=== PATIENT | female | born 1975 | race Caucasian/White ===

== ENCOUNTER 2016-12-05 06:07 | Observation (INO) | payer OTHER ==
[2016-12-04 12:12] VITALS: BMI 25.8
[2016-12-05] VITALS (20 sets, daily range): BP systolic 115–135; BP diastolic 59–74; PULSE 67–90; RESP 12–20; Ht 152.4 cm; Wt 59.5 kg
[~2016-12-05] VITALS: Ht 152.4 cm; Wt 59.5 kg
[2016-12-05] MEDS: LACTATED RINGER'S 1,000 ML IV* SCH ×4 (06:00→22:11)
[~2016-12-05 06:07] MED LIST: CEFAZOLIN 2 GM/50 ML (PMX) 50 ML IVPB ONE
[2016-12-05] MEDS ORDERED: ROCURONIUM 50 MG INJ ONE (07:00)
[2016-12-05] MEDS ORDERED: IBUP800T25 PO (07:01)
[2016-12-05] MEDS ORDERED: BETAMET NA PHOS/AC(6 MG/ML) 5ML INJ ONE (07:42)
[2016-12-05] MEDS ORDERED: THROMBIN 5000 UNIT VIAL ONE (07:42)
[2016-12-05] MEDS ORDERED: POLYMYXIN/BACITRACIN 1L IRRIG ONE (07:42)
[2016-12-05] MEDS ORDERED: GELATIN SIZE 100 SPONGE ONE (07:43)
--- NOTE | 2016-12-05 07:45 | HPN ---
Date/Time of Note Date/Time of Note DATE: 12/05/16 TIME: 07:44 Interval H&P Admission Note Pt. seen H&P reviewed: No system changes HAO TALAVERA MD Dec 05, 2016 07:44
[2016-12-05] MEDS ORDERED: SUCCINYLCHOLINE CHLORIDE 100 MG/5 ML SYG IV ONE (08:02)
[2016-12-05] MEDS ORDERED: PROPOFOL 20 ML ONE (08:02)
[2016-12-05] MEDS ORDERED: MIDAZOLAM 1 MG/ML 2 ML INJ ONE (08:02)
[2016-12-05] MEDS ORDERED: LIDOCAINE 2% (SDV) 5 ML INJ ONE (08:02)
[2016-12-05] MEDS ORDERED: BUPIVACAINE 0.5%/EPI (SDV) 10 ML INJ ONE (08:08)
[2016-12-05] MEDS ORDERED: PHENYLephrine (100 MCG/ML) 5ML SYG ONE (08:13)
[2016-12-05] MEDS ORDERED: CEFAZOLIN 1 GM INJ ONE (08:14)
[2016-12-05] MEDS ORDERED: ONDANSETRON 4 MG INJ ONE (08:25)
[2016-12-05] MEDS ORDERED: DEXAMETHASONE 4 MG/ML 1 ML INJ ONE (08:25)
[2016-12-05] MEDS ORDERED: FAMOTIDINE 20 MG INJ ONE (08:25)
[2016-12-05] MEDS ORDERED: SUGAMMADEX SODIUM 200 MG/2 ML VIAL IV ONE (10:45)
--- NOTE | 2016-12-05 10:55 | RADRPT ---
PROCEDURE: X-ray fluoroscopy guidance CLINICAL INDICATION: Pain TECHNIQUE: Fluoroscopic guidance was utilized for lumbar microdiskectomy L4-5. Fluoro time: 6.8 seconds Number of images/sequences: 4 COMPARISON: None available FINDINGS: Surgical instruments are seen directed at the L4-5 disk space. IMPRESSION: 1. X-ray fluoroscopic guidance, as above. RPTAT: QQ .Beltran Mcfarland MD, MD Date Time Electronically viewed and signed by .Beltran Mcfarland MD, on 12/05/2016 10:54 .R/
[2016-12-05] MEDS ORDERED: NALOXONE (0.4 MG/ML) INJ IV PRN (11:00)
[2016-12-05] MEDS ORDERED: PROCHLORPERAZINE 10 MG TAB PO PRN (11:00)
[2016-12-05] MEDS ORDERED: HYDROCODONE/APAP (5/325) TAB PO PRN (11:00)
[2016-12-05] MEDS ORDERED: NACL 0.9% 3 ML SYG IV SCH (11:00)
[2016-12-05] MEDS ORDERED: BETHANECHOL 25 MG TAB PO PRN (11:00)
--- NOTE | 2016-12-05 11:03 | OPR ---
Date/Time of Note Date/Time of Note DATE: 12/05/16 TIME: 10:52 Operative Report Free Text/Dictation DATE OF OPERATION: 12/05/2016 PREOPERATIVE DIAGNOSES: Left L4-L5 disk herniation and lateral recess stenosis with L5 radiculopathy POSTOPERATIVE DIAGNOSES: Left L4-L5 disk herniation and lateral recess stenosis with L5 radiculopathy OPERATION PERFORMED: 1. Left L4-L5 microdiscectomy with laminotomy and partial medial facetectomy SURGEON: Hao Talavera MD ANESTHESIA: General endotracheal ESTIMATED BLOOD LOSS: 50 mL SURGICAL INDICATION: The patient is a 41 year-old female who presents with a history of left lower extremity pain and weakness. She was found to have a disc herniation and lateral recess stenosis which correlated well with her symptoms. The patient had failed conservative treatment. Risks, benefits, and alternatives to microdiscectomy with left sided L4-5 microdecompression were explained to the patient and they wished to proceed. Risks explained included but were not exclusive of bleeding, infection, cauda equina syndrome, nerve injury, dural tear, iatrogenic instability requiring future fusion, recurrent disc herniation, fracture, vascular injury, bowel injury, stroke, heart attack and pulmonary embolism. DESCRIPTION OF TECHNIQUE: The patient was identified in the preoperative area and taken to the operating room. Rapid induction of general endotracheal anesthesia was performed. The patient was given 2 g of cefazolin for prophylaxis. The patient was then placed in the prone position on the Param table on top of a Shamar frame with all bony prominences well padded. The back was prepped and draped in the usual sterile manner. Using a spinal needle and intraoperative fluoroscopy, the appropriate level was clearly identified. The skin was injected using 0.5% Marcaine with epinephrine. Longitudinal midline incision was then created using a 10 blade. Further dissection through soft tissue was performed using electrocautery down to the spinous processes. The dissection was taken down the left side of the lamina and over the facet joint capsule. A self-retaining retractor was applied. Again , intraoperative fluoroscopy confirmed the appropriate level. The microscope was brought into use for microdissection. A small portion of the caudal aspect of the cephalad lamina and medial facet was resected using a high- speed bur. The L5 pedicle was identified caudally using a nerve probe. A series of Kerrison rongeurs were then used to resect the ligamentum flavum. The dura and traversing nerve root were both directly visualized. These were retracted gently in a medial direction. Immediately, the extruded disc fragment was noted. The pseudo anulus was incised using an 11 blade. Several loose fragments of disk were removed. These were removed back to a stable portion of the disk. The disk space was further pressurized using a using normal saline through a syringe to ensure that no loose fragments remained behind. Palpation with a ball -tip probe did not reveal any further stenosis. The traversing L5 nerve root was noted to be significantly decompressed. Meticulous attention was paid towards hemostasis using FloSeal . Care was taken to remove all FloSeal prior to wound closure. The fascia was then closed using 0 Vicryl in an interrupted fashion. Subcutaneous tissue was closed using 2-0 Vicryl in an interrupted fashion. The skin was closed using a running 4-0 Monocryl stitch. The wound was dressed using Dermabond, sterile gauze and a Tegaderm. The patient was returned to the supine position. She was extubated immediately postoperatively and taken to the recovery room in stable condition. COMPLICATIONS: None. Surgeon: HAO TALAVERA MD Anesthesia Type: general Estimated Blood Loss: 50 - 100 ml's Transfusion Required: yes Specimens L4-5 disk Grafts/Implants: none Complications: no Pt Condition Post Procedure: stable Disposition: PACU HAO TALAVERA MD Dec 05, 2016 11:02
--- NOTE | 2016-12-05 11:05 | PDOCDIS ---
Discharge Instructions CONDITION Patient Condition: Good HOME CARE INSTRUCTIONS: Diet Instructions: Regular ACTIVITY: Activity Restrictions: Avoid heavy lifting Bathing Restrictions: Shower FOLLOW UP/APPOINTMENTS Follow-up Plan Follow-up with Dr. Talavera in 2 weeks HAO TALAVERA MD Dec 05, 2016 11:05
[2016-12-05] MEDS ORDERED: HYDROmorphONE (0.2 MG/ML) 10ML SYG IV ONE (11:15)
[2016-12-05] MEDS ORDERED: MEPERIDINE 25 MG INJ ONE (11:15)
[2016-12-05] MEDS: CEFAZOLIN 1 GM/50 ML (PMX) 50 ML IVPB SCH ×2 (11:29→18:23)
[2016-12-05] MEDS: HYDROmorphONE (0.2 MG/ML) 10ML SYG IV PRN ×5 (11:41→12:16)
[2016-12-05] MEDS ORDERED: HYDROmorphONE (0.2 MG/ML) 10ML SYG IV PRN (12:00)
[2016-12-05] MEDS ORDERED: MEPERIDINE 25 MG INJ IV PRN (12:00)
[2016-12-05] MEDS ORDERED: DIPHENHYDRAMINE 50 MG INJ IV PRN (12:00)
[2016-12-05] MEDS ORDERED: FENTAnyl 50 MCG/ML VIAL IV PRN ×2 (12:00)
[2016-12-05] MEDS ORDERED: PROCHLORPERAZINE 10 MG INJ IV PRN (12:00)
[2016-12-05] MEDS ORDERED: LORAZEPAM 2 MG INJ IV PRN (12:00)
[2016-12-05] MEDS ORDERED: ONDANSETRON 4 MG INJ IV PRN (12:00)
[2016-12-05] MEDS: HYDROmorphONE 1 MG/ML SYG IV PRN ×2 (14:19→19:28)
[2016-12-05] MEDS: HYDROCODONE/APAP (5/325) TAB PO PRN (17:17)
[2016-12-05] MEDS: ONDANSETRON 4 MG INJ IV PRN (17:21)
[2016-12-06] MEDS: HYDROCODONE/APAP (5/325) TAB PO PRN ×4 (00:14→13:28)
[2016-12-06] MEDS: CEFAZOLIN 1 GM/50 ML (PMX) 50 ML IVPB SCH ×2 (00:15→06:30)
[2016-12-06 07:00] VITALS: BP 126/65; RESP 20
[2016-12-06] MEDS: ONDANSETRON 4 MG INJ IV PRN (10:20)
== END 2016-12-06 16:45 | disposition home or self-care (01) ==
LOC: SDS 06:07 → REC 10:48 → SDS 10:48 → MS1 10:48 → EDSTATUS 12:00 → MS1 12:45
PROVIDERS: ADMIT Orthopaedic Surgery; ATTEND Orthopaedic Surgery
DX: M51.16 Intervertebral disc disorders with radiculopathy, lumbar region (principal)
CPT/HCPCS: 63030; 72100; 88304; 97116; 97162; J0690; J0702; J1100; J1170; J1200; J2175; J2250; J2405; J3010; J7120; Z7500; Z7512; Z7610; G0378; J2370; J7999

== ENCOUNTER 2017-02-02 20:42 | Emergency (ER) | payer MEDICAID, OTHER ==
[~2017-02-02] VITALS: Ht 154.9 cm; Wt 60.5 kg
[2017-02-02 21:14] VITALS: Ht 154.9 cm; Wt 60.5 kg
[2017-02-03] MEDS ORDERED: HYDROCODONE/APAP (10/325) TAB PO ONE
[2017-02-03] MEDS ORDERED: IBUP-1542 PO ×2 (00:04→02:20)
--- NOTE | 2017-02-03 00:04 | ERD ---
ER Documentation Chief Complaint Date/Time DATE: 02/03/17 TIME: 00:02 Chief Complaint back pain since thursday had surgery nov 28 HPI 41-year-old female presents here to emergency department for complaints of lower back pain that started 3 days ago, patient had a history of back surgery done in November 28, approximately 2 months ago for her back. Patient started to have pain in the back again, throbbing pain, 6/10 scale, as was upon movement. Patient took ibuprofen at home with much relief. Patient denies any numbness or tingling. Patient denies any incontinence. Patient denies any fever or chills. ROS All systems reviewed and are negative except as per history of present illness. Medications Home Meds Reported Medications Ibuprofen* (Motrin*) Unknown Strength Tab, PO Q6, #30 TAB 02/03/17 Allergies Allergies: Coded Allergies: No Known Allergy (Unverified , 12/05/16) PMhx/Soc History of Surgery: Yes (C/ S X2, OVARIAN SX FOR ECTOPIC , TUMMY TUCK , BREAST ) Anesthesia Reaction: No Hx Neurological Disorder: No Hx Respiratory Disorders: No Hx Cardiac Disorders: No Hx Psychiatric Problems: No Hx Miscellaneous Medical Probl: Yes (back sx- r/o back pain a month ago) Hx Alcohol Use: No Hx Substance Use: No Hx Tobacco Use: No Smoking Status: Never smoker FmHx Family History: No coronary disease, No diabetes, No other Physical Exam Vitals Vital Signs Date Time Temp Pulse Resp B/P Pulse Ox O2 Delivery O2 Flow Rate FiO2 02/02/17 21:14 98.4 77 20 144/74 100 Physical Exam GENERAL: The patient is well developed and appropriate for usual state of health, in no apparent distress. CHEST: Clear to auscultation bilaterally. There are no rales, wheezes or rhonchi. HEART: Regular rate and rhythm. No murmurs, clicks, rubs or gallops. No S3 or S4. ABDOMEN: Soft, nontender and nondistended. Good bowel sounds. No rebound or guarding. No gross peritonitis. No gross organomegaly or masses. No Chambers sign or McBurney point tenderness. BACK: No midline or flank tenderness. EXTREMITIES: Equal pulses bilaterally. There is no peripheral clubbing, cyanosis or edema. No focal swelling or erythema. Full range of motion. Grossly neurovascularly intact. NEURO: Alert and oriented. Cranial nerves 2-12 intact. Motor strength in all 4 extremities with 5/5 strength. Sensation grossly intact. Normal speech and gait. SKIN: There is no apparent rash or petechia. The skin is warm and dry. HEMATOLOGIC AND LYMPHATIC: There is no evidence of excessive bruising or lymphedema. No gross cervical, axillary, or inguinal lymphadenopathy. Results 24 hrs Current Medications Medications (Trade) Dose Ordered Sig/Jeanette Route PRN Reason Start Time Stop Time Status Last Admin Dose Admin Acetaminophen/ Hydrocodone Bitart (Deerwood ()) 1 tab ONCE ONCE PO 02/03/17 00:00 02/03/17 00:01 DC 02/03/17 01:06 Patient was given medication for pain here in emergency department, after treatment, patient verbalized feeling much better. Patient's pain is improved. PROCEDURE: CT lumbar spine without contrast CLINICAL INDICATION: Back pain. TECHNIQUE: A CT scan of the lumbar spine was performed without intravenous contrast. Coronal and sagittal reformatted images were generated. CTDIvol: 11.61 mGy. DLP: 398.45 mGy-cm. One or more of the following dose reduction techniques were used: - Automated exposure control. - Adjustment of the mA and/or kV according to patient size. - Use of iterative reconstruction technique. COMPARISON: None. FINDINGS: The lumbar lordosis is preserved without spondylolisthesis. The vertebral body heights are maintained. Bone mineralization is normal and there is no suspicious osseous lesion. No fracture or subluxation is identified. T12-L1 through L3-L4: There is no significant degenerative change. No spinal canal stenosis or neural foraminal narrowing is seen. L4-L5: The patient is status post left laminectomy at this level. Posterior disc bulging is noted, without spinal canal stenosis. Minimal bilateral neural foraminal narrowing is noted due to disc bulging. L5-S1: There is a 4 mm central disc protrusion, without spinal canal stenosis. No neural foraminal narrowing is identified at this level. There is mild sigmoid colon diverticulosis. IMPRESSION: 1. Status post left laminectomy at L4-L5. 2. No spinal canal stenosis or significant neural foraminal narrowing along the lumbar spine. RPTAT: HTAR .Claude Palacio MD, Date Time Electronically viewed and signed by .Claude Palacio MD, MD on 02/03/2017 02:04 .R/ CC: KEVYN PARK ENTRY LEVEL PROJECT COORDINATOR Procedures/MDM Medical Decision Making: Patient's pain is most likely consistent with a back strain, can be from his chronic disc disease. There is no suspicion for neurovascular compromise. Patient has intact sensation and circulation of the affected extremity and distal extremities. No incontinence, no suspicion for cauda equina syndrome, no saddle anesthesia, no symptoms of any acute bacterial infection, no symptoms of any perirectal abscesses, pilonidal cyst.There is low suspicion for septic arthritis. Patient does not have any fever. No symptoms of any aortic dissection or aortic aneurysm. Radiology exam not indicated at this time. Disposition: Home. Patient is given prescription for ibuprofen for mild to moderate pain, Deerwood for severe pain, Flexeril for muscle spasm. Patient was advised to avoid heavy lifting , apply warm compresses on affected area. Patient was advised that if symptoms are worse, numbness, tingling, high fever, unable to move joint, worsening symptoms, to return to emergency department immediately. Otherwise, patient is advised to follow up with the primary care doctor in 5-7 days for reevaluation of symptoms. Disclaimer: Inadvertent spelling and grammatical errors are likely due to EHR/ dictation software use and do not reflect on the overall quality of patient care. Also, please note that the electronic time recorded on this note does not necessarily reflect the actual time of the patient encounter. Departure Diagnosis: Primary Impression: Back pain Back pain location: low back pain Chronicity: chronic Back pain laterality : bilateral Sciatica presence: without sciatica Qualified Code: M54.5 - Chronic bilateral low back pain without sciatica Condition: Stable Patient Instructions: Back Pain (Acute Or Chronic) Additional Instructions: Patient is given prescription for ibuprofen for mild to moderate pain, De[place]wood for severe pain, Flexeril for muscle spasm. Patient was advised to avoid heavy lifting , apply warm compresses on affected area. Patient was advised that if symptoms are worse, numbness, tingling, high fever, unable to move joint, worsening symptoms, to return to emergency department immediately. Otherwise, patient is advised to follow up with the primary care doctor in 5-7 days for reevaluation of symptoms. KEVYN PARK NP Feb 03, 2017 00:04
--- NOTE | 2017-02-03 02:04 | RADRPT ---
PROCEDURE: CT lumbar spine without contrast CLINICAL INDICATION: Back pain. TECHNIQUE: A CT scan of the lumbar spine was performed without intravenous contrast. Coronal and s agittal reformatted images were generated. CTDIvol: 11.61 mGy. DLP: 398.45 mGy-cm. One or more of the following dose reduction techniques were used: - Automated exposure control. - Adjustment of the mA and/or kV according to patient size. - Use of iterative reconstruction technique. COMPARISON: None. FINDINGS: The lumbar lordosis is preserved without spondylolisthesis. The vertebral body heights are maintain ed. Bone mineralization is normal and there is no suspicious osseous lesion. No fracture or sublux ation is identified. T12-L1 through L3-L4: There is no significant degenerative change. No spinal canal stenosis or neur al foraminal narrowing is seen. L4-L5: The patient is status post left laminectomy at this level. Posterior disc bulging is noted, w ithout spinal canal stenosis. Minimal bilateral neural foraminal narrowing is noted due to disc bulg ing. L5-S1: There is a 4 mm central disc protrusion, without spinal canal stenosis. No neural foraminal n arrowing is identified at this level. There is mild sigmoid colon diverticulosis. IMPRESSION: 1. Status post left laminectomy at L4-L5. 2. No spinal canal stenosis or significant neural foraminal narrowing along the lumbar spine. RPTAT: HTAR .Claude Palacio MD, Date Time Electronically viewed and signed by .Claude Palacio MD, on 02/03/2017 02:04 .R/
[2017-02-03] MEDS ORDERED: HYDR-906 PO (02:20)
[2017-02-03] MEDS ORDERED: CYCL-319 PO (02:20)
[2017-02-03 02:56] VITALS: BP 144/70; PULSE 65; RESP 16
== END 2017-02-03 02:57 | disposition home or self-care (01) ==
LOC: FTE 20:42
DX: M54.5 Low back pain (principal)
CPT/HCPCS: 72131; Z7502; Z7610